=== PATIENT | male | born 2000 | race African-American/Black ===

== ENCOUNTER 2023-07-03 15:37 | Emergency (ER) | payer SELFPAY ==
[2023-07-03 18:03] LABS: Influenza A by NAA Not Detected (NotDetected); Influenza B by NAA Not Detected (NotDetected); SARS-CoV-2 NAA Rapid Test Not Detected (NotDetected)
== END 2023-07-03 18:42 | disposition home or self-care (01) ==
LOC: CSHERS 15:37
DX: J06.9 Acute upper respiratory infection, unspecified (principal); R11.0 Nausea
CPT/HCPCS: 99283